=== PATIENT | female | born 1965 | race Caucasian/White ===

== ENCOUNTER → 2016-06-10 | Outpatient (CLI) | payer BC ==
--- NOTE | 2016-06-16 14:20 | BMR ---
EXAMINATION TYPE: MR breast BILAT wo/w con DATE OF EXAM: 06/10/2016 4:25 PM COMPARISON: Prior mammogram 12 April 2016, breast ultrasound 12 April 2016 HISTORY: Nipple Discharge TECHNIQUE: A series of fat and water weighted images in the long and short axis views of both breasts are obtained in conjunction with dynamic contrast MRI with subtraction technique. The patient was i njected with 15 mL intravenous MultiHance gadolinium contrast. Three-dimensional and additional pos tprocessing imaging is created on independent workstation and reviewed during official interpretation of this study. FINDINGS: There is susceptibility artifact due to patient's metallic clip at the inferior aspect of t he left breast approximately 6:00 position. Multiple bilateral cysts are present. Fibroglandular tiss ue is also present bilaterally. There is no evident adenopathy bilaterally. Stippled enhancement is present bilaterally without suspi cious focal mass like enhancement. Fat saturation image is somewhat compromised on the right. IMPRESSION: No suspicious mass like enhancement bilaterally. Left breast BI-RADS 2 benign Right breast BI-RADS 2 benign
== END | disposition home or self-care (01) ==
LOC: RADMRIMAIN 15:01
PROVIDERS: ATTEND Surgery
DX: N64.52 Nipple discharge (principal)
CPT/HCPCS: 77059; 0159T; A9577

== ENCOUNTER → 2016-10-07 | Outpatient (CLI) | payer BC ==
[2016-10-07 10:57] LABS: Basophils % (A) 1 %; CH 31.2; Eosinophils # (A) 0.1 k/uL (0-0.7); Eosinophils % (A) 2 %; HCT 42.5 % (34.0-46.0); HDW 2.11; HGB 13.7 gm/dL (11.4-16.0); Luc # (Auto) 0.15; Luc % (Auto) 2; Lymphocytes # (A) 2.1 k/uL (1.0-4.8); Lymphocytes % (A) 35 %; MCH 30.7 pg (25.0-35.0); MCHC 32.3 g/dL (31.0-37.0); Mean Platelet Volume 8.1; Monocytes # (A) 0.3 k/uL (0-1.0); Monocytes % (A) 6 %; Neutrophils # (A) 3.2 k/uL (1.3-7.7); Neutrophils % (A) 54 %; RBC 4.48 m/uL (3.80-5.40); RDW 12.7 % (11.5-15.5); WBC (Perox) 5.76
[2016-10-07 11:06] LABS: ALT 35 U/L (9-52); AST 18 U/L (14-36); Alkaline Phosphatase 54 U/L (38-126); Anion Gap 10 mmol/L; Blood Urea Nitrogen 17 mg/dL (7-17); Calcium 9.4 mg/dL (8.4-10.2); Carbon Dioxide 24 mmol/L (22-30); Chloride 107 mmol/L (98-107); Cholesterol 165 mg/dL (<200); Glucose 98 mg/dL (74-99); HDL Cholesterol 74 mg/dL (40-60); Non-African American GFR(MDRD) >60 (>60 ml/min/1.73 sqM); Potassium 4.4 mmol/L (3.5-5.1); Sodium 141 mmol/L (137-145); Total Bilirubin 0.5 mg/dL (0.2-1.3); Total Protein 6.3 g/dL (6.3-8.2); Triglycerides 52 mg/dL (<150)
== END | disposition home or self-care (01) ==
LOC: LABWHC1 09:15
PROVIDERS: ATTEND Family Medicine
DX: Z13.6 Encounter for screening for cardiovascular disorders (principal); N93.9 Abnormal uterine and vaginal bleeding, unspecified
CPT/HCPCS: 36415; 80053; 80061; 84439; 84443; 85025

== ENCOUNTER → 2016-12-02 | Outpatient (CLI) | payer BC ==
--- NOTE | 2016-12-02 09:21 | USB ---
EXAMINATION TYPE: US breast complete BILAT DATE OF EXAM: 12/02/2016 COMPARISON: Left breast ultrasound dated 04/15/2016 and mammogram of the left breast dated 04/15/2016 as well as MR breast dated 06/10/2016 CLINICAL HISTORY: N64.52 NIPPLE DISCHARGE,N64.4 BREAST PAIN. 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 Ductal ectasia is seen within the retroareolar right breast with no sonographic evidence of filling d efect. 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 At the 10:00 position, within zone a there is a new 0.5 x 0.3 x 0.5 cm oval mass, which is wider than tall containing a well-defined posterior wall and minimal increased through transmission. This is av ascular. Although this may represent a cluster of cysts or a complicated cyst six-month follow-up is recommended for this abnormality. Corresponding to the finding at the 12:00 position on the prior exam for which six-month follow-up is recommended there is a 0.3 cm avascular hypoechoic region which demonstrates increased through trans mission on today's examination most compatible with a benign cyst. It appears the focal zone was slig htly lower on the examination of 04/12/2016 and therefore characteristics of increased through transm ission may not have been definitively identified. Other scattered cysts are appreciated, as seen on t he prior MR. IMPRESSION: 1. BI-RADS 3- Probably benign finding. 5 mm oval mass at the 10:00 position within the right breast, not visualized on the prior exam, that may represent a cluster cyst or complicated cyst, however prec autionary 6 month follow-up ultrasound is recommended to determine stability. 2. The previously described probably benign finding at the 12:00 position on the right breast appears to correspond to a cyst as the focal zone is more appropriately placed on today's examination demons trating increased through transmission. 3. Biopsy marker in the region of previously pathologically proven pseudoaneurysm is from hyperplasia with no new mass at this location.
--- NOTE | 2016-12-02 09:32 | MM ---
Reason for exam: follow-up at short interval from prior study. Last mammogram was performed 8 months ago. History: Patient is nulliparous. Family history of breast cancer in aunt at age 50, breast cancer in grandmother at age 50, and breast cancer in cousin. Benign US biopsy breast VAD LT of the left breast, April 15, 2016. Took hormonal contraceptives for 17 years. Physical Findings: Nurse did not find any significant physical abnormalities on exam. MG 3D Diag Mammo W/Cad CALEB Bilateral CC and MLO view(s) were taken. Prior study comparison: April 15, 2016, left breast MG diagnostic mammo LT wo CAD. April 12, 2016, bilateral MG 3d diag mammo w/cad CALEB. The breast tissue is heterogeneously dense. This may lower the sensitivity of mammography. No suspicious abnormality. No significant new findings when compared with previous films. These results were verbally communicated with the patient and result sheet given to the patient on 12/02/16. ASSESSMENT: Probably benign, BI-RAD 3 RECOMMENDATION: Ultrasound of the left breast in 6 months.
== END | disposition home or self-care (01) ==
LOC: RADUSWWP 06:52
PROVIDERS: ATTEND Surgery
DX: N64.52 Nipple discharge (principal); N64.4 Mastodynia; R92.8 Other abnormal and inconclusive findings on diagnostic imaging of breast
CPT/HCPCS: 76641; G0204; G0279

== ENCOUNTER → 2017-06-05 | Outpatient (CLI) | payer OTHER ==
--- NOTE | 2017-06-05 11:19 | USB ---
Reason for exam: follow-up at short interval from prior study. History: Patient is nulliparous. Family history of breast cancer in aunt at age 50, breast cancer in grandmother at age 50, and breast cancer in cousin. Benign US biopsy breast VAD LT of the left breast, April 15, 2016. Took hormonal contraceptives for 17 years. Physical Findings: Nurse Summary: intermittent bloody discharge not since March 2017 (nurse dw). US Breast LT Left breast ultrasound includes all four quadrants, the retroareolar region and axilla. Finding demonstrates a 0.6 x 0.5 x 0.3cm oval, mixed lesion at 3 o'clock possibly lymph node or cyst, stable, a 0.8 x 0.7 x 0.4cm oval, mixed lesion at 10 o'clock versus 5 x 3 x 5mm previously, additional 6 month follow up recommended, if this continues to increase in size biopsy can be performed and duct ectasia at the posterior nipple. These results were verbally communicated with the patient and result sheet given to the patient on 06/05/17. ASSESSMENT: Probably benign, BI-RAD 3 RECOMMENDATION: Follow-up diagnostic mammogram of both breasts in 6 months. Ultrasound of the left breast in 6 months. (attention 10 o'clock)
== END | disposition home or self-care (01) ==
LOC: RADUSWWP 09:40
PROVIDERS: ATTEND Surgery
DX: N64.52 Nipple discharge (principal); N64.4 Mastodynia

== ENCOUNTER → 2017-12-04 | Outpatient (CLI) | payer OTHER ==
--- NOTE | 2017-12-05 08:55 | MM ---
Reason for exam: additional evaluation requested from prior study. Last mammogram was performed 1 year ago. History: Patient is nulliparous. Family history of breast cancer in aunt at age 50, breast cancer in grandmother at age 50, and breast cancer in cousin. Benign US biopsy breast VAD LT of the left breast, April 15, 2016. Took hormonal contraceptives for 17 years. Physical Findings: Nurse did not find any significant physical abnormalities on exam. MG 3D Diag Mammo W/Cad CALEB Bilateral CC and MLO view(s) were taken. Technologist: Yane Humphries RT (R)(M) Prior study comparison: December 02, 2016, bilateral MG 3d diag mammo w/cad CALEB. April 15, 2016, left breast MG diagnostic mammo LT wo CAD. April 12, 2016, bilateral MG 3d diag mammo w/cad CALEB. October 25, 2013, bilateral MG screening mammo w CAD. The breast tissue is heterogeneously dense. This may lower the sensitivity of mammography. Chronic nodularity left breast. No discrete abnormality. These results were verbally communicated with the patient and result sheet given to the patient on 12/04/17. ASSESSMENT: Benign, BI-RAD 2 RECOMMENDATION: Routine screening mammogram of both breasts in 1 year.
--- NOTE | 2017-12-05 09:05 | USB ---
Reason for exam: additional evaluation requested from prior study. History: Patient is nulliparous. Family history of breast cancer in aunt at age 50, breast cancer in grandmother at age 50, and breast cancer in cousin. Benign US biopsy breast VAD LT of the left breast, April 15, 2016. Took hormonal contraceptives for 17 years. US Breast LT Left complete breast ultrasound includes all four quadrants, the retroareolar region and axilla. Finding demonstrates a 0.6 x 0.3 x 0.6 cm oval well circumscribed mixed lesion at 3 o'clock which is stable. A 0.6 x 0.3 x 0.4 cm oval well circumscribed mixed lesion at 10 o'clock and a 0.6 x 0.3 x 0.6 cm oval well circumscribed mixed lesion at 10 o'clock both have decreased in size. These results were verbally communicated with the patient and result sheet given to the patient on 12/04/17. ASSESSMENT: Benign, BI-RAD 2 RECOMMENDATION: Routine screening mammogram of both breasts in 1 year.
== END | disposition home or self-care (01) ==
LOC: RADMAMWWP 09:42
PROVIDERS: ATTEND Family Medicine
DX: R92.8 Other abnormal and inconclusive findings on diagnostic imaging of breast (principal)
CPT/HCPCS: 77062; 77066

== ENCOUNTER → 2018-10-30 | Outpatient (CLI) | payer BC ==
--- NOTE | 2018-10-30 11:20 | MM ---
Reason for exam: additional evaluation requested from prior study. Last mammogram was performed 11 months ago. History: Patient is nulliparous. Family history of breast cancer in aunt at age 50, breast cancer in grandmother at age 50, and breast cancer in cousin. Benign US biopsy breast VAD LT of the left breast, April 15, 2016. Took hormonal contraceptives for 17 years. Physical Findings: Nurse did not find any significant physical abnormalities on exam. MG 3D Diag Mammo W/Cad CALEB Bilateral CC and MLO view(s) were taken. Prior study comparison: December 04, 2017, bilateral MG 3d diag mammo w/cad CALEB. December 02, 2016, bilateral MG 3d diag mammo w/cad CALEB. The breast tissue is heterogeneously dense. This may lower the sensitivity of mammography. No significant new findings when compared with previous films. These results were verbally communicated with the patient and result sheet given to the patient on 10/30/18. ASSESSMENT: Benign, BI-RAD 2 RECOMMENDATION: Routine screening mammogram of both breasts in 1 year.
--- NOTE | 2018-10-30 11:22 | USB ---
Reason for exam: additional evaluation requested from prior study. History: Patient is nulliparous. Family history of breast cancer in aunt at age 50, breast cancer in grandmother at age 50, and breast cancer in cousin. Benign US biopsy breast VAD LT of the left breast, April 15, 2016. Took hormonal contraceptives for 17 years. US Breast LT Left complete breast ultrasound includes all four quadrants, the retroareolar region and axilla. Finding demonstrates a 5 x 3 x 5mm oval, mixed lesion at 10 o'clock, seen on previous, unchanged. These results were verbally communicated with the patient and result sheet given to the patient on 10/30/18. ASSESSMENT: Probably benign, BI-RAD 3 RECOMMENDATION: Ultrasound of the left breast in 6 months. Routine screening mammogram of both breasts in 1 year.
== END | disposition home or self-care (01) ==
LOC: RADMAMWWP 09:35
PROVIDERS: ATTEND Family Medicine
DX: R92.8 Other abnormal and inconclusive findings on diagnostic imaging of breast (principal)
CPT/HCPCS: 77062; 77066

== ENCOUNTER → 2019-05-06 | Outpatient (CLI) | payer BC ==
--- NOTE | 2019-05-06 09:56 | USB ---
Reason for exam: follow-up at short interval from prior study. History: Patient is nulliparous. Family history of breast cancer in aunt at age 50, breast cancer in grandmother at age 50, and breast cancer in cousin. Benign US biopsy breast VAD LT of the left breast, April 15, 2016. Took hormonal contraceptives for 17 years. Physical Findings: Nurse did not find any significant physical abnormalities on exam. US Breast Limited LT Left limited breast ultrasound including focal area of concern, retroareolar and axilla demonstrates a 5 x 2 x 5mm oval, mixed lesion at 10 o'clock unchanged from previous. These results were verbally communicated with the patient and result sheet given to the patient on 05/06/19. ASSESSMENT: Benign, BI-RAD 2 RECOMMENDATION: Routine screening mammogram of both breasts in 6 months. Back on schedule.
== END | disposition home or self-care (01) ==
LOC: RADUSWWP 09:15
PROVIDERS: ATTEND Surgery
DX: R92.8 Other abnormal and inconclusive findings on diagnostic imaging of breast (principal)

== ENCOUNTER → 2019-11-04 | Outpatient (CLI) | payer BC ==
--- NOTE | 2019-11-05 12:07 | MM ---
Reason for exam: screening (asymptomatic). Last mammogram was performed 1 year ago. History: Patient is nulliparous. Family history of breast cancer in aunt at age 50, breast cancer in grandmother at age 50, and breast cancer in cousin. Benign US biopsy breast VAD LT of the left breast, April 15, 2016. Took hormonal contraceptives for 17 years. Physical Findings: A clinical breast exam by your physician is recommended on an annual basis and results should be correlated with mammographic findings. MG 3D Screening Mammo W/Cad Bilateral CC and MLO view(s) were taken. Prior study comparison: October 30, 2018, bilateral MG 3d diag mammo w/cad CALEB. December 04, 2017, bilateral MG 3d diag mammo w/cad CALEB. There are scattered fibroglandular densities. No significant changes when compared with prior studies. ASSESSMENT: Benign, BI-RAD 2 RECOMMENDATION: Routine screening mammogram of both breasts in 1 year.
== END | disposition home or self-care (01) ==
LOC: RADMAMWWP 08:57
PROVIDERS: ATTEND Surgery
DX: Z12.31 Encounter for screening mammogram for malignant neoplasm of breast (principal)
CPT/HCPCS: 77063; 77067

== ENCOUNTER → 2020-07-08 | Outpatient (CLI) | payer BC ==
--- NOTE | 2020-07-08 09:06 | MM ---
Reason for exam: clinical finding. Last mammogram was performed 8 months ago. History: Patient is nulliparous. Family history of breast cancer in aunt at age 50, breast cancer in grandmother at age 50, and breast cancer in cousin. Benign US biopsy breast VAD LT of the left breast, April 15, 2016. Took hormonal contraceptives for 17 years. Physical Findings: Nurse did not find any significant physical abnormalities on exam. MG 3D Diag Mammo W/Cad LT CC and MLO view(s) were taken of the left breast. Prior study comparison: November 04, 2019, bilateral MG 3d screening mammo w/cad. October 30, 2018, bilateral MG 3d diag mammo w/cad CALEB. There are scattered fibroglandular densities. No significant new findings when compared with previous films. These results were verbally communicated with the patient and result sheet given to the patient on 07/08/20. ASSESSMENT: Benign, BI-RAD 2 RECOMMENDATION: Return to routine screening mammogram schedule for both breasts. Back on schedule for October 2020. Manage on a clinical basis with regard to discharge.
== END | disposition home or self-care (01) ==
LOC: RADMAMWWP 07:40
PROVIDERS: ATTEND Family Medicine
DX: N64.52 Nipple discharge (principal)
CPT/HCPCS: 77061; 77065

== ENCOUNTER → 2020-09-10 | Outpatient (CLI) | payer BC ==
--- NOTE | 2020-09-11 08:18 | USB ---
Reason for exam: clinical finding. History: Patient is nulliparous. Family history of breast cancer in aunt at age 50, breast cancer in grandmother at age 50, and breast cancer in cousin. Benign US biopsy breast VAD LT of the left breast, April 15, 2016. Took hormonal contraceptives for 17 years. Indicated problem(s): non-bloody discharge in the left breast. Physical Findings: Nurse did not find any significant physical abnormalities on exam. US Breast Limited LT Left limited breast ultrasound including focal area of concern, retroareolar and axilla demonstrates a 5 x 2 x 5mm oval, mixed lesion at 10 o'clock, unchanged from previous. Fibrocystic area stable, benign appearing. No retroareolar findings. These results were verbally communicated with the patient and result sheet given to the patient on 09/10/20. ASSESSMENT: Benign, BI-RAD 2 RECOMMENDATION: Return to routine screening mammogram schedule for both breasts. Back on schedule for October 2020. Manage on a clinical basis with regard to clear nipple discharge.
== END | disposition home or self-care (01) ==
LOC: RADUSWWP 15:04
PROVIDERS: ATTEND Surgery
DX: N64.52 Nipple discharge (principal); N64.59 Other signs and symptoms in breast; Z80.3 Family history of malignant neoplasm of breast

== ENCOUNTER 2021-06-04 08:04 | Day surgery (SDC) | payer BC ==
[2021-06-02 12:01] VITALS: BMI 35.6
[~2021-06-04 08:04] MED LIST: ACETAMINOPHEN TAB 500 MG TAB PO PRN; DEXAMETHASONE SOD PHOSPHATE 4 MG/ML 1 ML VIAL IV ONE; HEPARIN SODIUM,PORCINE/PF 5,000 UNIT/0.5 ML SYRINGE SQ PRN; HYDROmorphone 0.5 MG/0.5 ML SYRINGE IVP PRN; MIDAZOLAM 2 MG/2 ML VIAL IV PRN; ONDANSETRON 4 MG/2 ML VIAL IVP ONE; SCOPOLAMINE 1.5MG/72HR PATCH TRANSDERM ONE
[2021-06-04] MEDS: LACTATED RINGERS 1,000 ML IV SCH ×2 (08:40→12:27)
[2021-06-04] MEDS ORDERED: LIDOCAINE 1% (10MG/ML) FOR IV START INTRADERMA ONE (08:40)
--- NOTE | 2021-06-04 09:43 | P.GSHP ---
History of Present Illness H&P Date: 06/04/21 Chief Complaint: Left breast nipple discharge 56-year-old female well-known to our service. She was last seen in August of last year. Patient with chronic pretty much daily discharge of usually clear fluid from the left nipple. It has been at times bloody in the past. She has had previous MRI that was normal. Last August the patient had an ultrasound that showed no definite abnormalities. Patient and I have discussed subareolar excision on a few occasions. She recently contact of the office to schedule. No breast pain. She does not feel any masses. Past Medical History Past Medical History: No Reported History History of Any Multi-Drug Resistant Organisms: None Reported Additional Past Surgical History / Comment(s): Colonoscopy. Past Anesthesia/Blood Transfusion Reactions: No Reported Reaction, Motion Sickness Past Psychological History: Anxiety Smoking Status: Never smoker Past Alcohol Use History: Rare Past Drug Use History: None Reported - Past Family History Father Family Medical History: Cancer Medications and Allergies Home Medications Medication Instructions Recorded Confirmed Type Escitalopram [Lexapro] 10 mg PO HS 06/02/21 06/04/21 History Ibuprofen [Advil] 400 mg PO Q8HR PRN 06/02/21 06/04/21 History Allergies Allergy/AdvReac Type Severity Reaction Status Date / Time No Known Allergies Allergy Verified 06/04/21 08:19 Surgical - Exam Vital Signs Temp Pulse Resp BP Pulse Ox 97.3 F L 73 16 134/73 95 06/04/21 08:27 06/04/21 08:27 06/04/21 08:27 06/04/21 08:27 06/04/21 08:27 Physical exam: General: Well-developed, well-nourished HEENT: Normocephalic, sclerae nonicteric Right breast: No masses, no adenopathy Left breast: Clear discharge from the lower lateral aspect of the nipple, no adenopathy or masses Abdomen: Nontender, nondistended Extremities: No edema Neuro: Alert and oriented Assessment and Plan (1) Nipple discharge Narrative/Plan: 56 row female with nipple discharge. We'll proceed with subareolar excision at this time. Risks of bleeding, infection, scarring, dimpling, numbness, nipple inversion, possible need for further surgeries or persistent discharge reviewed. She understands and wishes to proceed. Current Visit: Yes Status: Acute Code(s): N64.52 - NIPPLE DISCHARGE SNOMED Code(s): 90723061
[2021-06-04] MEDS ORDERED: MIDAZOLAM 2 MG/2 ML VIAL ONE (09:54)
[2021-06-04] MEDS ORDERED: PROPOFOL 10 MG/ML 20 ML VIAL IV ONE (09:54)
[2021-06-04] MEDS ORDERED: fentaNYL (PF) 50 MCG/ML 2 ML AMP ONE (09:54)
[2021-06-04] MEDS ORDERED: LIDOCAINE 1% INJ 10MG/ML (20 ML MDV) ONE (09:54)
[2021-06-04] MEDS ORDERED: PHENYLEPHRINE-0.9% NACL SYG 1,000 MCG/10 ML SYRINGE ONE (09:54)
[2021-06-04] MEDS ORDERED: LACTATED RINGERS 1,000 ML IV ONE (10:33)
[2021-06-04] MEDS ORDERED: NALOXONE 0.4 MG/ML 1 ML VIAL IV PRN (10:41)
[2021-06-04] MEDS ORDERED: HYDROcodone/APAP 5-325MG 1 EACH TAB PO PRN (10:41)
--- NOTE | 2021-06-04 10:45 | P.OP ---
Date of Procedure: 06/04/21 Procedure(s) Performed: PREOPERATIVE DIAGNOSIS: Left breast nipple discharge POSTOPERATIVE DIAGNOSIS: Same PROCEDURE: Left breast subareolar excision SURGEON: Tanya EBL: 5 mL ANESTHESIA: General COMPLICATIONS: None OPERATIVE PROCEDURE: Patient was placed on the operating room table in the supine position. A curvilinear incision was made along the areola on the left breast inferiorly. The subcutaneous tissues beneath the areola and nipple were excised at that time. We confirmed prior to the case that the nipple discharge appear to be coming from the lower outer quadrant. Despite that we did remove much of the subareolar tissue circumferentially. No bleeding was seen. The subcutaneous tissues were closed using both 20 and 3-0 Vicryl sutures. The skin was closed using interrupted 4-0 Monocryl sutures. Skin glue and sterile dressings were then applied. DISPOSITION: Stable to recovery room
[2021-06-04 10:56] VITALS: TEMP 97.6
[2021-06-04] MEDS ORDERED: ONDANSETRON 4 MG/2 ML VIAL ONE (11:57)
[2021-06-04] MEDS ORDERED: ONDANSETRON 4 MG/2 ML VIAL IVP ONE (12:04)
[2021-06-04 13:07] VITALS: BP 124/75; PULSE 75; RESP 16
== END 2021-06-04 13:59 | disposition home or self-care (01) ==
LOC: OR 08:04
PROVIDERS: ATTEND Surgery
DX: D24.2 Benign neoplasm of left breast (principal); N62 Hypertrophy of breast; N60.12 Diffuse cystic mastopathy of left breast; Z98.890 Other specified postprocedural states; Z82.61 Family history of arthritis; Z80.9 Family history of malignant neoplasm, unspecified; F41.9 Anxiety disorder, unspecified; Z79.1 Long term (current) use of non-steroidal anti-inflammatories (NSAID); Z79.899 Other long term (current) drug therapy
CPT/HCPCS: 88305; 19120; J2250; J1100; J0690; J2405; J2001; J3010; J2370; J2704; J1790; J1644

== ENCOUNTER → 2022-02-21 | Outpatient (CLI) | payer BC ==
--- NOTE | 2022-02-23 08:46 | MM ---
Reason for Exam: Screening (asymptomatic). Last mammogram was performed 2 year(s) and 4 month(s) ago. Patient History: Menarche at age 13. Patient has no children. Hormonal Contraceptives for 17 years until age 43. 04/15/2016, Benign Core Biopsy on the left side. Maternal grandmother had breast cancer, age 50. Maternal cousin had breast cancer. Maternal aunt had breast cancer, age 50. Last menstrual period: Risk Values: Sybil 5 year model risk: 1.6%. NCI Lifetime model risk: 10.4%. Prior Study Comparison: 10/25/2013 Bilateral Screening Mammogram, [facility]. 04/12/2016 Bilateral Diagnostic Mammogram, [facility]. 04/12/2016 Left Diagnostic Ultrasound, [facility]. 04/15/2016 Left Diagnostic Mammogram, [facility]. 06/10/2016 Bilateral Diagnostic Breast MRI, [facility]. 12/02/2016 Bilateral Diagnostic Mammogram, [facility]. 12/02/2016 Bilateral Diagnostic Ultrasound, [facility]. 06/05/2017 Left Diagnostic Ultrasound, [facility]. 12/04/2017 Bilateral Diagnostic Mammogram, [facility]. 12/04/2017 Left Diagnostic Ultrasound, [facility]. 10/30/2018 Bilateral Diagnostic Mammogram, [facility]. 10/30/2018 Left Diagnostic Ultrasound, [facility]. 05/06/2019 Left Diagnostic Ultrasound, [facility]. 11/04/2019 Bilateral Screening Mammogram, [facility]. 07/08/2020 Left Diagnostic Mammogram, [facility]. Tissue Density: The breast tissue is heterogeneously dense. This may lower the sensitivity of mammography. Findings: Analyzed By CAD. Mammotome biopsy clip in the left breast is redemonstrated. There is no suspicious new group of microcalcifications or new suspicious mass in either breast. Overall Assessment: Benign, BI-RAD 2 Management: Screening Mammogram of both breasts in 1 year. A clinical breast exam by your physician is recommended on an annual basis and results should be correlated with mammographic findings. Electronically signed and approved by: Aston Thompson M.D.
== END | disposition home or self-care (01) ==
LOC: RADMAMWWP 16:40
PROVIDERS: ATTEND Family Medicine
DX: Z12.31 Encounter for screening mammogram for malignant neoplasm of breast (principal); Z80.3 Family history of malignant neoplasm of breast
CPT/HCPCS: 77063; 77067

== ENCOUNTER → 2022-03-23 | Outpatient (CLI) | payer BC ==
--- NOTE | 2022-03-24 09:13 | US ---
EXAMINATION TYPE: US transvaginal DATE OF EXAM: 03/23/2022 COMPARISON: NONE CLINICAL HISTORY: 57-year-old female N95.0 POSTMENOPAUSAL BLEEDING. G0. TECHNIQUE: Transvaginal (TV). Date of LMP: In May 2020 FINDINGS: EXAM MEASUREMENTS: Uterus: 5.9 x 4.3 x 3.0 cm Endometrial Stripe: 0.42 cm Right Ovary: 2.8 x 1.2 x 1.6 cm for volume of 2.8 mL. Left Ovary: 3.6 x 1.6 x 1.4 cm for volume of 4.2 mL 1. Uterus: Retroverted. Appears very heterogeneous. There is a 9 mm cervical nabothian cyst. Hypoech oic area seen within the anterior fundus myometrium: 0.7 x 0.7 x 0.5 cm. 2. Endometrium: 0.42 cm. 3. Right Ovary: Small calcification noted measuring 3 mm. Otherwise, satisfactory small postmenopaus al appearance. 4. Left Ovary: Appears wnl. Blood flow noted. 5. Bilateral Adnexa: Hypoechoic, heterogeneous area seen midline pelvis extending into the left adne xa measurin.8 x 3.2 x 3.0 cm. It is difficult to tell the origin of this area. It is either johnnie guous with or abuts the uterine fundus and possibly connected to versus abutting the left ovary as we ll. 6. Posterior cul-de-sac: Free fluid seen. IMPRESSION: 1. Recommend further female pelvic MRI evaluation. There is a 3.2 cm extrauterine mass at the uterine fundus extending into the left adnexa. This either abuts or connects to the left ovary as well. An e xophytic fibroid is possible. Other mass arising from either the uterus or ovary not excluded at this time.. 2. Retroverted uterus with heterogeneous myometrium. There is a possible cystic area along the anteri or uterine fundal myometrium. Consider the possibility of underlying adenomyosis. This can also be fu rther assessed on the female pelvic MRI. 3. Endometrial stripe measuring 4.2 mm which is acceptable in a postmenopausal female.
== END | disposition home or self-care (01) ==
LOC: RADUSWWP 16:21
PROVIDERS: ATTEND Family Medicine
DX: N85.8 Other specified noninflammatory disorders of uterus (principal); N85.4 Malposition of uterus; N95.0 Postmenopausal bleeding
CPT/HCPCS: 76830

== ENCOUNTER → 2022-04-18 | Outpatient (CLI) | payer BC ==
--- NOTE | 2022-04-18 22:06 | MR ---
EXAMINATION TYPE: MR pelvis wo/w con DATE OF EXAM: 04/18/2022 COMPARISON: Pelvic ultrasound 03/23/2022 CLINICAL INDICATION:Female, 57 years old with history of R19.07 PELVIC SWELLING, MASS AND LUMP; TECHNIQUE: Triplane multisequence imaging was performed of the pelvis. IV Contrast: 10 cc Gadavist FINDINGS: Reproductive: Vagina: Unremarkable. Uterus: The uterus is retroverted in position. Uterus measures 5.8 x 2.9 x 4.2 cm. The endometrium an d junctional zone are within normal limits. Multiple nabothian cysts are seen in the lower uterine s egment. Exophytic leiomyoma in the posterior left fundal region measuring 3.3 x 3.0 x 2.7 cm which i s intermediate T1/T2 signal. There is homogenous postcontrast enhancement. Ovaries: Right ovary measures approximately 1.9 x 1.0 cm in the left ovary measures 2.4 x 1.4 cm. Bladder: Unremarkable. Bowel: Unremarkable as visualized. Peritoneum: A small amount of free fluid in the pelvis. Lymph nodes: No evidence of adenopathy. Vasculature: Unremarkable. Musculoskeletal: Bone marrow signal is within normal signal intensity. Abdominal wall/soft tissues: Unremarkable. IMPRESSION: 1. Posterior fundal exophytic fibroid measuring up to 3.3 cm. No evidence of ovarian mass. 2. Endometrium and junctional zone are within normal limits.
== END | disposition home or self-care (01) ==
LOC: RADMRIMAIN 18:11
PROVIDERS: ATTEND Family Medicine
DX: D25.9 Leiomyoma of uterus, unspecified (principal); R19.07 Generalized intra-abdominal and pelvic swelling, mass and lump
CPT/HCPCS: 72197; A9585

== ENCOUNTER → 2023-05-19 | Outpatient (CLI) | payer BC ==
--- NOTE | 2023-05-22 15:21 | MM ---
Reason for Exam: Screening (asymptomatic). Last mammogram was performed 1 year(s) and 3 month(s) ago. Patient History: Menarche at age 13. Patient has no children. Postmenopausal. Hormonal Contraceptives for 17 years until age 43. 04/15/2016, Benign Core Biopsy on the left side. Maternal grandmother had breast cancer, age 50. Maternal cousin had breast cancer. Maternal aunt had breast cancer, age 50. Risk Values: Sybil 5 year model risk: 1.8%. NCI Lifetime model risk: 10.0%. Prior Study Comparison: 11/04/2019 Bilateral Screening Mammogram, [facility]. 07/08/2020 Left Diagnostic Mammogram, [facility]. 02/21/2022 Bilateral MG 3D screening mammo w/cad, [facility]. Tissue Density: The breast tissue is almost entirely fat. Findings: Analyzed By CAD. Left breast biopsy clip. There is no suspicious group of microcalcifications or new suspicious mass. Overall Assessment: Benign, BI-RAD 2 Management: Screening Mammogram of both breasts in [address] [facility] will attempt to contact patient to return for supplemental views and ultrasound if indicated. Patient should continue monthly self-breast exams. A clinical breast exam by your physician is recommended on an annual basis. This exam should not preclude additional follow-up of suspicious palpable abnormalities. Note on Sybil scores and lifetime risk: 1. A Sybil score greater than 3% is considered moderate risk. If this is the case, consider specialist referral to assess eligibility for a risk reducing agent. 2. If overall lifetime risk for the development of breast cancer is 20% or higher, the patient may qualify for future screening with alternating mammogram and breast MRI. Electronically signed and approved by: Vik Ybarra DO
== END | disposition home or self-care (01) ==
LOC: RADMAMWWP 09:52
PROVIDERS: ATTEND Family Medicine
DX: Z12.31 Encounter for screening mammogram for malignant neoplasm of breast (principal); Z80.3 Family history of malignant neoplasm of breast; Z78.0 Asymptomatic menopausal state
CPT/HCPCS: 77063; 77067